=== PATIENT | male | born 1980 | race Caucasian/White ===

== ENCOUNTER 2023-06-30 11:00 | Outpatient (REF) | payer OTHER, SELFPAY ==
[2023-06-30 14:41] LABS: MANUAL DIFF FLAG NO
[2023-06-30 14:54] LABS: Basophils Percent Auto 0.5 % (0-2); Eosinophils Absolute Auto 0.1 X10*3/uL (0.0-0.4); Eosinophils Percent Auto 1.6 % (0-4); Hematocrit 46.8 % (42.0-52.0); Hemoglobin 16.1 g/dl (14.0-18.0); Imm Gran Abs Auto 0.02 X10*3/uL (0.00-0.03); Imm Gran Pct Auto 0.3 % (0.0-0.4); Lymphocytes Absolute Auto 2.2 X10*3/uL (1.2-4.9); Lymphocytes Percent Auto 34.8 % (20-40); Mean Corpuscular HGB Conc 34.4 g/dl (31.0-36.0); Mean Corpuscular Hemoglobin 29.3 pg (27.0-33.0); Mean Corpuscular Volume 85.2 fL (80.0-98.0); Mean Platelet Volume 10.4 fL (9.4-12.4); Monocytes Absolute Auto 0.6 X10*3/uL (0.1-1.2); Monocytes Percent Auto 10.2 % (2-11); Neutrophils Absolute Auto 3.3 x10*3/uL (2.0-8.3); Neutrophils Percent Auto 52.6 % (45-73); Platelet Count 228 X10*3/uL (160-400); Red Blood Count 5.49 X10*6/uL (4.60-5.80); Red Cell Distribution Width 12.1 % (11.0-16.0); White Blood Count 6.2 X10*3/uL (4.8-10.8)
[2023-06-30 15:32] LABS: Alanine Aminotransferase 106 U/L (0-40); Albumin Level 4.2 g/dL (3.5-5.0); Alkaline Phosphatase 89 U/L (39-117); Anion Gap 10 (12-20); Aspartate Amino Transferase 42 U/L (5-37); Bilirubin Total 0.4 mg/dL (0.0-1.0); Blood Urea Nitrogen 13 mg/dL (9-16); Calcium 9.3 mg/dL (8.4-10.2); Carbon Dioxide 24 mmol/L (22-29); Chloride 109 mmol/L (96-108); Cholesterol 172 mg/dL (<200); Estimated Glomerular Filt Rate > 60; Glucose Random 98 mg/dL (60-115); HDL Cholesterol 29 mg/dL (>40); LDL Cholesterol Calculated 94 mg/dL (<100); Potassium 3.5 mmol/L (3.3-5.1); Sodium 139 mmol/L (135-145); Total Protein 7.8 g/dL (6.5-8.0); Triglycerides 245 mg/dL (<150)
[2023-06-30 15:35] LABS: Estimated Average Glucose 111 mg/dL; Hemoglobin A1c % 5.5 % (<6.0)
[2023-06-30 15:49] LABS: TSH reflex Free T4 2.03 uIU/mL (0.32-4.0)
== END 2023-06-30 11:01 | disposition home or self-care (01) ==
LOC: HO.CHCLDS 11:00
PROVIDERS: Visit Provider Internal Medicine
DX: Z13.6 Encounter for screening for cardiovascular disorders (principal); R03.0 Elevated blood-pressure reading, without diagnosis of hypertension
CPT/HCPCS: 36415; 80053; 80061; 83036; 84443; 85025

== ENCOUNTER 2024-08-09 15:27 | Outpatient (REF) | payer OTHER, SELFPAY ==
--- OUTSIDE RECORDS SUMMARY | 2024-08-09 15:32 | XMS_ITS | Encounter Summary ---
Author Organization [employer] Address [address] [facility] [address] [place] [address] Care Team Providers Care Salvage Grinder Name Role Phone Rome Rooney MD Primary Care Prov ider Reason for Visit * Reason Onset Date Comments Call Back Request 06/24/2024 Encounter Details Date Type Department Care Team (Late st Contact Info) Description 06/24/2024 Telephone [facility] [address] [place] [address] Rome Rooney MD [address] [place] [address] Call Back Request Social History Tobacco Use Types Packs/Day Years Used Date Smoking Tobacco: Never Assessed Depression Answer Date Recorded Patient Health Questionnaire-9 Score 14 10/30/2023 Patient Health Questionnaire-9 Score 14 10/30/2023 Last PHQ-9: Questionnaire Data Not on file 0 10/30/2023 Housing Stability Answer Date Recorded What is your housing situation today? I have cassandra ferguson 01/07/[address] you li ve. Do you have problems with any of the following? None of the above 01/07/2023 Food Insecurity Answer Date Recorded Within the past 12 months, y ou worried that your food would run out before you got money to buy more: Never True 01/07/2023 Within the past 12 months,th e food you bought just didn't last and you didn't have enough money to get more: Never True Transportation Answer Date Recorded In the past 12 months, has l ack of transportation kept you from medical appts, meetings, work or from getting things needed for daily living? No 01/07/2023 Utilities Answer Date Recorded In the past 12 months, has t he electric, gas, oil or water company threatened to shut off services in your home? No 01/07/2023 Depression Answer Date Recorded Patient Health Questionnaire-2 Score 2 10/30/2023 Sex and Gender Information Value Date Recorded Sex Assigned at Male 01/21/2022 10:19 AM EDT Legal Sex Male 10:19 AM EDT Gender Identity Male 01/21/2022 10:19 AM EDT Sexual Orientation Straight 01/21/2022 10 :19 AM EDT documented as of this encounter Miscellaneous Notes * Telephone Encounter - Soumya Taylor - 06/24/2024 8:38 AM EDT Tc from pt returning call in regards prior message [phone] documented in this encounter Plan of Treatment Upcoming Encounters Date Type Department Care Team (Late st Contact Info) Description 08/31/2024 8:45 AM EDT Office Visit [facility] [address] [place] [address] Rome Rooney MD [address] [place] [address] documented as of this encounter Visit Diagnoses Not on filedocumented in this encounter Additional Health Concerns Assessment Noted Time PHQ-9 Depression Total Score: 14 024 3:53 PM EDT documented as of this encounter Care Teams Salvage Grinder Relationship Specialty Start Date End Date Rome Rooney MD [address] [place] [address] PCP - General Internal Medicine 10/15/19 documented as of this encounter
--- OUTSIDE RECORDS SUMMARY | 2024-08-09 15:32 | XMS_ITS | Clinical Summary ---
Author Organization [facility] Address [address] [place] [address] Care Team Providers Care Letter Of Credit Document Examiner Name Role Phone Unavailable Primary Care Provider Unavailabl e Allergies No known active allergies Medications No known medications Social History Tobacco Use Types Packs/Day Years Used Date Smoking Tobacco: Never Assessed Sex and Gender Information Value Date Recorded Sex Assigned at Not on file Gender Identity Not on file Sexual Orientation Not on file Job Start Date Occupation Industry Not on file Not on file Not on file Last Filed Vital Signs Vital Sign Reading Time Taken Comments Blood Pressure - - Pulse - - Temperature - - Respiratory Rate - - Oxygen Saturation - - Inhaled Oxygen Concentration - - Weight 98.4 kg (217 lb) 10/09/2021 1:54 PM EDT Height 175.3 cm (5' 9 ) 10/09/2021 1:54 PM EDT Body Mass Index 32.05 10/09/2021 1:54 PM EDT Plan of Treatment Health Maintenance Due Date Last Done Comments Hepatitis B Vaccines (1 of 3 - 3-dose series) 1981 Hepatitis C Screening 1981 COVID-19 Vaccine (#1) 1981 Depression Screening 1993 Preventative Health Evaluation 1999 DTap / Tdap / Td (1 - Tdap) 02/06/2000 Influenza Vaccine (#1) 2023 Pneumococcal Vaccine Aged Out No long er eligible based on patient's age to complete this topic RSV Ped < 20 months Aged Out No longe r eligible based on patient's age to complete this topic
--- OUTSIDE RECORDS SUMMARY | 2024-08-09 15:32 | XMS_ITS | Encounter Summary ---
Author Organization [employer] Address [address] [facility] [address] [place] [address] Care Team Providers Care Senior Quality Control Technician Name Role Phone Rome Rooney MD Primary Care Prov ider Reason for Visit * Reason Onset Date Comments Nurse Triage 10/09/2022 Encounter Details Date Type Department Care Team ([facility] st Contact Info) Description 10/09/2022 Telephone [facility] [address] [place], [place] [phone] Rome Rooney MD [address] [place] [address] Nurse Triage Social History Tobacco Use Types Packs/Day Years Used Date Smoking Tobacco: Never Assessed Depression Answer Date Recorded Patient Health Questionnaire-9 Score 0 07/02/2022 Depression Answer Date Recorded Patient Health Questionnaire-2 Score 0 07/02/2022 Sex and Gender Information Value Date Recorded Sex Assigned at Male 01/21/2022 10:19 AM EDT Legal Sex Male 10:19 AM EDT Gender Identity Male 01/21/2022 10:19 AM EDT Sexual Orientation Straight 01/21/2022 10 :19 AM EDT documented as of this encounter Miscellaneous Notes * Telephone Encounter - Kenna Estevez RN - 10/09/2022 12:31 PM EDT Triage call Pt reports bilateral flank pain. Pt reports seen in [facility] a month and a half ago anddx kidney stones. Pt reports this feels the same way. Pt denies blood in the urine, no pain with urination. Pt is advised to increase liquids to 6-8 cups / day , ice or heat to area , tylenol/ibuprofen for pain. Try to strain urine if possible to see if stone passed. Apt today 10/09 @ 340pm [facility] . Home care reviewed. Protocol Used: Flank Pain (Adult) Protocol-Based Disposition: See in Office or Video Visit within 3 Days Video visit not offered Positive Triage Question: * History of kidney stones * All higher-acuity triage questions were negative Care Advice Discussed: * Reassurance and Education - Flank Pain * Use a Cold Pack for Pain * Use Heat After 48 Hours for Pain * Activity * Pain Medicines * Pain Medicines - Extra Notes and Warnings * Reasons To Call Back - Fever over 100.4 F (38.0 C) - Burning with urination or blood in urine - Pain lasts over 3 days - You become worse * Telephone Encounter - Lillie Alexis - 10/09/2022 12:17 PM EDT Patient calling to report back and rib pain. States it may be a possible kidney stones . Patient speaks [place]. Advised triage nurse will call patient back. documented in this encounter Plan of Treatment Upcoming Encounters Date Type Department Care Team (Late st Contact Info) Description 08/31/2024 8:45 AM EDT Office Visit [facility] [address] [place] [address] Rome Rooney MD [address] [place] [address] documented as of this encounter Visit Diagnoses Not on filedocumented in this encounter Additional Health Concerns Assessment Noted Time PHQ-9 Depression Total Score: 0 07/03/19 23 1:57 PM EDT documented as of this encounter Care Teams Senior Quality Control Technician Relationship Specialty Start Date End Date Rome Rooney MD [address] [place] [address] PCP - General Internal Medicine 10/15/19 documented as of this encounter
--- OUTSIDE RECORDS SUMMARY | 2024-08-09 15:32 | XMS_ITS ---
Author Name [facility] Organization Unknown Care Team Organization Name Specialty Phone Email Start Date End [facility] 07/29/2024
--- OUTSIDE RECORDS SUMMARY | 2024-08-09 15:32 | XMS_ITS | Encounter Summary ---
Author Organization [facility] Address [address] [place] [address] Care Team Providers Care Slurry Tank Operator Name Role Phone Rubin Live Primary Care Provider [phone] Encounter Details Date Type Department Care Team ([facility] st Contact Info) Description 06/07/2021 Orders Only [facility] [address] [place] [address] Kimberley Lei MD [address] [place] [address] Screening for viral disease (Primary Dx) Social History Tobacco Use Types Packs/Day Years Used Date Smoking Tobacco: Never Assessed Sex and Gender Information Value Date Recorded Sex Assigned at Not on file Legal Sex Male 3:32 PM EST Gender Identity Not on file Sexual Orientation Not on file documented as of this encounter Plan of Treatment Not on file documented as of this encounter Visit Diagnoses Diagnosis Screening for viral disease- Primary Special screening examination for unspecified viral disease documented in this encounter Care Teams Slurry Tank Operator Relationship Specialty Start Date End Date Rubin Live [address] [place] [address] PCP - General 04/15/21 documented as of this encounter
--- OUTSIDE RECORDS SUMMARY | 2024-08-09 15:32 | XMS_ITS | Referral Summary ---
Author Organization [facility] Address [address] [place] [address] Care Team Providers Care River Boat Captain Name Role Phone Rubin Live Primary Care Provider + [phone] Allergies No known active allergies Medications azithromycin (ZITHROMAX) 250 mg tablet TAKE 2 TABLETS BY MOUTH THE DAY AFTER SURGERY, THEN TAKE 1 TABLET DAILY FOR 4 DAYS 03/29/2021 Active ALPRAZolam (XANAX) 1 mg tablet Take 1 mg by mouth 2 times a day as needed. 03/29/2021 Active fexofenadine (TRACEY) 180 mg tablet 06/03/2021 Active gabapentin (NEURONTIN) 300 mg capsule Take 300 mg by mouth 2 times a day as needed. 01/30/2021 Active oxyCODONE IR (ROXICODONE) 5 mg tablet Take 5 mg by mouth every 4 hours as needed. 04/23/2021 Active zolpidem (AMBIEN) 10 mg tablet Take 10 mg by mouth nightly. 05/07/2021 Active acetaminophen (TYLENOL) 325 mg tablet Take 650 mg by mouth every 6 hours as needed for pain. Active Active Problems No known active problems Social History Tobacco Use Types Packs/Day Years Used Date Smoking Tobacco: Never Smokeless Tobacco: Never Alcohol Use Standard Drinks/Week Comments Not Currently 0 (1 standard drink = 0.6 oz pur e alcohol) Sex and Gender Information Value Date Recorded Sex Assigned at Not on file Legal Sex Male 3:32 PM EST Gender Identity Not on file Sexual Orientation Not on file Last Filed Vital Signs Vital Sign Reading Time Taken Comments Blood Pressure 119/75 07/27/2021 9:59 AM EDT Pulse 76 07/27/2021 9:59 AM EDT Temperature 36.3 ??C (97.3 ??F) 07/27/2021 9:59 AM ED T Respiratory Rate 20 07/27/2021 9:59 AM EDT Oxygen Saturation 96% 07/27/2021 9:31 AM EDT Inhaled Oxygen Concentration - - Weight 94.3 kg (208 lb) 07/27/2021 6:28 AM EDT Height 182.9 cm (6') 07/27/2021 6:28 AM EDT Body Mass Index 28.21 07/27/2021 6:28 AM EDT Plan of Treatment Not on file Insurance [employer] Advance Directives Documents on File Type Date Recorded Patient Dice Spotter Expl [facility] Health Care Proxy 07/27/2021 8:02 AM 2021 Care Teams River Boat Captain Relationship Specialty Start Date End Date Rubin Live [address] [place] [id number] PCP - General 04/15/21
--- OUTSIDE RECORDS SUMMARY | 2024-08-09 15:32 | XMS_ITS | Clinical Summary ---
Author Organization [facility] Address [address] [place] [id number] Care Team Providers Care Glass Decorator Name Role Phone Unavailable Primary Care Provider Unavailabl e Social History Tobacco Use Types Packs/Day Years Used Date Smoking Tobacco: Never Assessed Sex and Gender Information Value Date Recorded Sex Assigned at Not on file Legal Sex Male 9:12 AM EDT Gender Identity Not on file Sexual Orientation Not on file Plan of Treatment Upcoming Encounters Date Type Department Care Team (Late st Contact Info) Description 09/14/2024 11:00 AM EDT Clinical Support [facility] [address], [place] [address] Gregory Bradshaw MD [address] [place] [address] Health Maintenance Due Date Last Done Comments Hepatitis C Virus Screening 1981 HIV Screening 1994 DTaP/Tdap/Td Vaccines (1 - Tdap) 02/06/2000 Hepatitis B Vaccines (1 of 3 - 19+ 3-dose series) 02/06/2000 COVID-19 Vaccine ( - 2023-2 5 season) 2023 Influenza Vaccine 10/22/2024 HPV Vaccines Aged Out No longer eligi ble based on patient's age to complete this topic Pneumococcal Vaccine: Pediat marlon (0-5 Years) and At-Risk Patients (6 to 49 Years) Aged Out No longer eligible b ased on patient's age to complete this topic Insurance
--- OUTSIDE RECORDS SUMMARY | 2024-08-09 15:32 | XMS_ITS | Clinical Summary ---
Author Organization [facility] Address [address] [place] [address] Care Team Providers Care Javascript Ui Developer Name Role Phone Rubin Live Primary Care Provider + [phone] Allergies No known active allergies Medications azithromycin [...] 07/27/2021 6:28 AM EDT Plan of Treatment Health Maintenance Due Date Last Done Comments HIV Screening 1981 Varicella Vaccines (1 of 2 - 13+ 2-dose series) 1994 Hepatitis B Vaccines (1 of 3 - 19+ 3-dose series) 02/06/2000 DTaP,Tdap,and Td Vaccines (1 - Tdap) 2003 COVID-19 Vaccine (3 - 2023-2 5 season) 2023 04/20/2020, 03/30/2020 Alcohol/Substance Use Screening 03/24/2024 Influenza Vaccine (Season Ended) 2024 03/06/2021, 01/14/2020 RSV Vaccine (60+ years old and patients) (1 - 1-dose 75+ series) 02/06/2056 Pneumococcal Vaccine: Pediatric (0-5 Years) and At-Risk Patients (6-50 Years) Aged Out No longer eligible based on patient's age to complete this topic Insurance Advance Directives Documents on File Type Date Recorded Patient Senior Mobile Solutions Architect [facility] Proxy 07/27/2021 8:02 AM 2021 Care Teams Javascript Ui Developer Relationship Specialty Start Date End Date Rubin Live [address] [place] [id number] PCP - General 04/15/21
--- OUTSIDE RECORDS SUMMARY | 2024-08-09 15:32 | XMS_ITS | Clinical Summary ---
Author Organization [employer] Address [address] [facility] [address] [place] [address] Care Team Providers Care Tire Classifier Name Role Phone Rome Rooney MD Primary Care Prov ider Allergies No known active allergies Medications * This document contains information received from the source organization and may not represent a complete record from that organization. Blood Pressure kit 1 kit in the morning. 1 kit 4 Active escitalopram (Lexapro) 20 MG tablet TAKE 1 TABLET BY MOUTH EVERY DAY 90 tablet 4 Active hydrOXYzine HCl (Atarax) 25 MG tablet TAKE 1 TABLET BY MOUTH IF NEEDED IN THE MORNING, AT NOON, AND AT BEDTIME FOR ITCHING. 90 tablet 3 5 Active cholecalciferol (Vitamin D-3) 25 MCG (1000 UT) capsule Take 1 capsule (25 mcg) by mouth Once per day. 30 capsule 11 5 07/01/19 26 Active SUMAtriptan (Imitrex) 50 MG tablet Take 1 tablet (50 mg) by mouth 1 (one) time if needed for migraine for up to 20 doses. May repeat dose once in 2 hours if no relief. Do not exceed 2 doses in 24 hours. 10 tablet 1 5 Active naproxen (Naprosyn) 500 MG tablet Take 1 tablet (500 mg) by mouth 2 times daily. 60 tablet 5 07/31/19 25 docusate sodium (Colace) 100 MG capsule Take 1 capsule (100 mg) by mouth 2 times daily. 60 capsule 5 07/31/19 25 Active Problems Problem Noted Date Diagnosed Date Pain in both hands 06/30/2024 Assessment & Plan (06/30/2024 9:58 AM EDT): Will test for rheumatoid arthritis, will order bilateral hand pain, follow up with results Rectal bleeding 06/30/2024 Assessment & Plan (06/30/2024 9:59 AM EDT): Complains of rectal bleeding when wiping, will refer to gi for evalaution Intractable migraine without aura and without status migrainosus 06/30/2024 Assessment & Plan (06/30/2024 10:00 AM EDT): Will start on naproxen/sumatriptan, will place neurology referral Vitamin D deficiency 06/30/2024 Assessment & Plan (06/30/2024 10:01 AM EDT): Vitamin d levels were 17, will start cholecalciferol 25mg, follow up in 4 months Anxiety 07/08/2023 Assessment & Plan (11/20/2023 8:52 AM EDT): Will start on lexapro, continue with hydroxyzine as needed, will follow up in 1 month Assessment & Plan (07/22/2023 2:03 PM EDT): Recently seen at er due to anxiety, will start on lexapro, provided with phone number to establish therapist care, no suicidal/homicidal ideas, will follow up in 1 month Assessment & Plan (07/08/2023 12:20 PM EDT): Since last visit he has recognized episode are more anxiety related, will add hydroxyzine, and will refer to , no suicidal/homicidal ideas Elevated BP without diagnosis of hypertension Assessment & Plan (11/20/2023 8:53 AM EDT): Has remained stable, most likely related to anxiety/WCS, cotninue low sodium diet and exercise as tolerated Assessment & Plan (07/08/2023 12:19 PM EDT): Most likely related to anxiety WCS?, at home has remained stable, below 140/90, keep low sodium diet and exercise as tolerated Discussed blood work result Chronic pain of left knee 07/02/2022 Assessment & Plan (07/02/2022 2:36 PM EDT): Followed by ortho, patient has been getting steroid injection but lately, not improving pain, told to rest joint, apply ice, will provide tramadol#15 for >7/10 pain, continue tylenol/ibuprofen for pain and follow up with ortho Irritable bowel syndrome with constipation 07/02 Assessment & Plan (07/02/2022 2:32 PM EDT): Will renew linzess, previously prescribed by his GI, currently experiencing constipation Encounters Date Type Department Care Team Description 08/03/2024 Travel 07/30/2024 Telephone [facility] [address] [place] [address] Rome Rooney MD 06/30/2024 8:30 AM EDT Telemedicine [facility] [address] [place] [address] Rome Rooney MD Pain in both hands (Primary Dx); Rectal bleeding; Intractable migraine without aura and without status migrainosus; Vitamin D deficiency 06/30/2024 Travel 06/24/2024 Telephone [facility] [address] [place] [address] Rome Rooney MD Call Back Request 06/22/2024 Telephone [facility] [address] [place] [address] Rome Rooney MD 06/22/2024 Travel 06/21/2024 Telephone [facility] [address] [place] [address] Rome Rooney MD Referral from Last 3 Months Social History Tobacco Use Types Packs/Day Years [...] Orientation Straight 01/21/2022 10 :19 AM EDT Last Filed Vital Signs Vital Sign Reading Time Taken Comments Blood Pressure 126/90 10/30/2023 3:52 PM EDT Pulse 88 10/30/2023 3:52 PM EDT Temperature 36.8 ??C (98.3 ??F) 10/30/2023 3:52 PM ED T Respiratory Rate 20 10/30/2023 3:52 PM EDT Oxygen Saturation 98% 10/30/2023 3:52 PM EDT Inhaled Oxygen Concentration - - Weight 103 kg (227 lb 9.6 oz) 10/30/2023 3:52 PM EDT Height 180.3 cm (5' 11 ) 10/30/2023 3:52 PM EDT Body Mass Index 31.74 10/30/2023 3:52 PM EDT Plan of Treatment Upcoming Encounters Date Type Department Care Team (Late st Contact Info) Description 08/31/2024 8:45 AM EDT Office Visit [facility] [address] [place] [address] Rome Rooney MD [address] [place] [address] Health Maintenance Due Date Last Done Comments Disability Screening 1981 Alcohol/Substance Use Screening 1993 Tobacco Screening 1993 Family Planning (PISQ) 02/06/1996 DTaP/Tdap/Td Vaccines (1 - Tdap) 02/06/2000 Hepatitis B Vaccines (1 of 3 - 19+ 3-dose series) 02/06/2000 SDOH Screening 07/03/2023 07/02/2022 COVID-19 Vaccine (3 - 2023- season) 2023 04/20/2020, 03/30/2020 Depression Screening 10/29/2024 10/30/2023, 10/30/19 24 Lipid Panel 06/29/2028 06/30/2023, 06/22, 08/31/2020, Additional history exists Zoster Vaccines (1 of 2) 2031 RSV Patients and Patients Aged 60 years or older (1 - 1-dose 75+ series) 02/06/2056 HIV Screening Completed 07/04/2022, 09/15/2019 Hepatitis C Screening Completed 07/04/2022, 020 Influenza Vaccine Completed 01/22/2024, , 01/14/2022, Additional history exists HIB Vaccines Aged Out No longer eligi ble based on patient's age to complete this topic HPV Vaccines Aged Out No longer eligi ble based on patient's age to complete this topic Hepatitis A Vaccines Aged Out No long er eligible based on patient's age to complete this topic IPV Vaccines Aged Out No longer eligi ble based on patient's age to complete this topic Meningococcal B Vaccine Aged Out No l onger eligible based on patient's age to complete this topic Meningococcal Vaccine Aged Out No jad velma eligible based on patient's age to complete this topic Pneumococcal Vaccine: Pediatrics (0 to 5 Years) and At-Risk Patients (6 to 49) Years) Aged Out No longer eligible based on patient's age to complete this topic RSV under 20 months Aged Out No longe r eligible based on patient's age to complete this topic Rotavirus Vaccines Aged Out No longer eligible based on patient's age to complete this topic Procedures Procedure Name Priority Date/Time Associated Diagnosis Comments LIPID PANEL, STANDARD Routine 06/30/2023 11:05 AM EDT Elevated blood pressure reading HEPATITIS C AB W/REFL TO HCV RNA, QN, PCR Routine 07/04/2022 8:07 AM EDT Chronic pain of left knee HIV 1 RNA, QN PCR W/RFL WINSOME (RTI,PI,INTEGRASE) Routine 07/04/2022 8:07 AM EDT Chronic pain of left knee from Last 3 Months or Most Recently Relevant to Health Maintenance Results * (ABNORMAL) Lipid Panel, Standard (06/30/2023 11:05 AM EDT) Triglycerides 245(H) <150 mg/dL [facility] Comment:Desirable Triglyceri de: less than 150 mg/dLBorderline High Triglyceride 150-199 mg/dLHigh Triglyceride: 200-499 mg/dLVery High Triglyceride: greater than or equal to 5OO mg/dL Cholesterol 172 <200 mg/dL [facility] Comment:Desirable Cholestero l: less than 200 mg/dLBorderline High Cholesterol: 200-239 mg/dLHigh Cholesterol: greater than 239 mg/dL LDL Cholesterol Calculated 94 <100 mg/dL [facility] Comment:Desirable LDL: less than 100 mg/dLNear Optimal/Above Optimal LDL: 110- 129 mg/dLBorderline High LDL: 130-159 mg/dLHigh LDL: 160-189 mg/dLVery High LDL: greater than or equal to 190 mg/dL HDL Cholesterol 29(L) >40 mg/dL [facility] Comment:Desirable HDL: great er than 40 mg/dL Note: This HDL assay may give artificially low results in patients with liver disease. Blood Venous blood specimen / Unknown 06/30/2023 11:05 AM EDT 06/30/2023 2:36 PM EDT Rome Hein MD LAB BLOOD ORDERABL ES Final Result [facility] [address] [place] [address] [phone] * HIV-1 RNA, Quantitative, Real-Time PCR with Reflex to Genotype (RTI, PI, Integrase) (07/04/2022 8:07 AM EDT) Pathologist [facility] HIV 1 RNA, QN PCR NOT DETECTED copies/mL [facility], HIV 1 RNA, QN PCR NOT DETECTED Log copies/mL [facility], Comment: REFERENCE RANGE: NOT DETECTED copies/mL ?NOT DETECTED ??Log copies/mL This test was performed using Real-Time Polymerase Chain Reaction. Reportable range is 20 to 10,000,000 copies/mL (1.30-7.00 Log copies/mL). 07/04/2022 8:07 AM EDT 07/04/2022 8:07 AM EDT Narrative [facility] - 07/08/2022 11:39 PM EDT FASTING:YES FASTING: YES Rome Hein MD LAB BLOOD ORDERABL ES Final Result Performing Organization Address City/[facility] Co de Phone Number [address], [place] [address] [facility], [address] [place] [address] * Hepatitis C Antibody with Reflex to HCV, RNA, Quantitative, Real-Time PCR (07/04/2022 8:07 AM EDT) Pathologist [facility] Hepatitis C Antibody NON-REACT HARDEEP NON-REACT HARDEEP [facility] [place] [facility] Index 0.15 <1.00 [facility] Comment: HCV antibody was non-reactive. There is no laboratory evidence of HCV infection. In most cases, no further action is required. However, if recent HCV exposure is suspected, a test for HCV RNA (test code 88640) is suggested. For additional information please refer to http://education.Smackages/faq/EPX76w5 (This link is being provided for informational/ educational purposes only.) Blood Venous blood specimen / Unknown 07/04/2022 8:07 AM EDT 07/04/2022 8:07 AM EDT Narrative [facility] - 07/08/2022 11:39 PM EDT FASTING:YES FASTING: YES Rome Hein MD LAB BLOOD ORDERABL ES Final Result [facility] [address], [place] [address] [facility] [address] [place] [address] from Last 3 Months or Most Recently Relevant to Health Maintenance Insurance , [address] [place] [id number] Care Teams Tire Classifier Relationship Specialty Start Date End Date Rome Rooney MD [address] [place] [phone] PCP - General Internal Medicine 10/15/19
--- OUTSIDE RECORDS SUMMARY | 2024-08-09 15:32 | XMS_ITS | Encounter Summary ---
Author Organization [employer] Address [address] [facility] [address] [place] [address] Care Team Providers Care Nurse Staff Name Role Phone Rome Rooney MD Primary Care Prov ider Reason for Visit * Reason Onset Date Comments Medication Question 11/04/2023 Encounter Details Date Type Department Care Team ([facility] st Contact Info) Description 11/04/[address] [facility] [address] [place] [address] Rome Rooney MD [address] [place] [address] Medication Question Social History Tobacco Use Types Packs/Day Years [...] encounter Miscellaneous Notes * Telephone Encounter - Johnathon Ryan - 11/04/2023 4:32 PM EDT Tc from [facility] Requesting if script escitalopram (Lexapro) 10 MG tablet could be split into two different scripts one for 20 mg and the other 10 mg due to insurance not covering current script . documented in this encounter Plan of Treatment Upcoming Encounters Date Type Department Care Team (Late st Contact Info) Description 08/31/2024 8:45 AM EDT Office Visit [facility] [address] [place], [place] [phone] Rome Rooney MD [address] [place] [address] documented as of this encounter Visit Diagnoses Not on filedocumented in this encounter Additional Health Concerns Assessment Noted Time PHQ-9 Depression Total Score: 14 024 3:53 PM EDT documented as of this encounter Care Teams Nurse Staff Relationship Specialty Start Date End Date Rome Rooney MD [address] [place] [address] PCP - General Internal Medicine 10/15/19 documented as of this encounter
--- OUTSIDE RECORDS SUMMARY | 2024-08-09 15:32 | XMS_ITS | Clinical Summary ---
[facility] Address [address] [place] [address] Care Team Providers Care Process Safety Engineer Name Role Phone Unavailable Primary Care Provider Unavailabl e Surgical History Surgery Date Site/Laterality Comments KNEE ARTHROSCOPY 2019 PROCEDURE: ID ARTHROSCOPY AID TX SPINE&/FX KNEE W/O FIXJ KNEE SURGERY PROCEDURE:KNEE SURGERY Social History Tobacco Use Types Packs/Day Years Used Date Smoking Tobacco: Never Assessed Alcohol Use Standard Drinks/Week Comments Never 0 (1 standard drink = 0.6 oz pur e alcohol) Sex and Gender Information Value Date Recorded Sex Assigned at Not on file Legal Sex Male 4:35 AM EST Gender Identity Not on file Sexual Orientation Not on file Obstetrics History Plan of Treatment Health Maintenance Due Date Last Done Comments DTaP,Tdap,and Td Vaccines (1 - Tdap) 02/06/2000 Hepatitis B Vaccines (1 of 3 - 19+ 3-dose series) 02/06/2000 Cholesterol Screening (Lipid Panel) 02/24/2022 Depression Screening 02/24/2022 HIV Screening 02/24/2022 Hepatitis C Screening 02/24/2022 Social Influencers of Health Screening 02/24/2022 COVID-19 Vaccine ( - 2023-2 5 season) 2023 Influenza Vaccine (Season Ended) 2024 HIB Vaccines Aged Out No longer eligi [...] on patient's age to complete this topic MMR Vaccines Aged Out No longer eligi ble based on patient's age to complete this topic Meningococcal ACWY Vaccine Aged Out N o longer eligible based on patient's age to complete this topic Meningococcal B Vaccine Aged Out No l onger eligible based on patient's age to complete this topic Pneumococcal Vaccine: Pediat rics (0 to 5 Years) and At-Risk Patients (6 to 64 Years) Aged Out No longer eligible b ased on patient's age to complete this topic RSV Immunization Patients Un isac 20 months Aged Out No longer eligible b ased on patient's age to complete this topic Varicella Vaccines Aged Out No longer eligible based on patient's age to complete this topic
[2024-08-09 17:40] LABS: C Reactive Protein 0.42 mg/dL (< or = 0.50)
[2024-08-09 18:01] LABS: Rheumatoid Factor < 13.0 IU/mL (<15.0)
[2024-08-09 18:08] LABS: Erythrocyte Sedimentation Rate 2 MM/HR (0-15)
[2024-08-10 20:39] LABS: Cyclic Citrullinated Peptide <16 UNITS
== END 2024-08-09 15:28 | disposition home or self-care (01) ==
LOC: HO.CHCLDS 15:27
PROVIDERS: Visit Provider Internal Medicine
DX: M79.641 Pain in right hand (principal); M79.642 Pain in left hand
CPT/HCPCS: 36415; 85652; 86140; 86200; 86431